=== PATIENT | male | born 1945 | race Caucasian/White ===

== ENCOUNTER 2022-10-09 21:54 | Emergency (ER) | payer BC, MEDICARE ==
[2022-10-09] MEDS ORDERED: LIDOCAINE 2% 5ML JELLY UROJET TOP ONE (22:20)
[2022-10-09] MEDS ORDERED: TAMSULOSIN 0.4 MG CAP PO ONE (22:20)
[2022-10-09 22:58] VITALS: BP 158/88
[2022-10-09] MEDS ORDERED: FLOM0.4C39 PO (23:43)
[2022-10-09] MEDS ORDERED: CEPH500C PO (23:43)
[2022-10-09] MEDS ORDERED: CEPHALEXIN 500 MG CAP PO ONE (23:45)
== END 2022-10-09 23:57 | disposition home or self-care (01) ==
LOC: EDBD 21:54 → M ED 21:54
DX: N39.0 Urinary tract infection, site not specified (principal); R33.9 Retention of urine, unspecified; F41.9 Anxiety disorder, unspecified; Z91.048 Other nonmedicinal substance allergy status; Z79.2 Long term (current) use of antibiotics; Z79.899 Other long term (current) drug therapy

== ENCOUNTER 2022-10-22 17:27 | Emergency (ER) | payer MEDICARE, BC ==
[~2022-10-22] VITALS: Ht 170.2 cm; Wt 75.0 kg
[~2022-10-22 17:27] MED LIST: CEPH500C PO; FLOM0.4C39 PO
[2022-10-22] MEDS ORDERED: LIDOCAINE 2% 5ML JELLY UROJET As Ordered ONE (17:48)
[2022-10-22 18:23] LABS: BASO % 0.5 % (0.0-1.0); EOS # 0.1 10^3/uL (0.0-0.5); HEMATOCRIT 45.2 % (42.0-52.0); HEMOGLOBIN 15.3 g/dl (13.5-17.5); LYMPH # 0.3 10^3/uL (1.5-5.0); LYMPH % 4.7 % (24.0-44.0); MEAN CORPUSCULAR HEMOGLOBIN 32.6 pg (27.0-33.0); MEAN CORPUSCULAR HGB CONC 33.8 g/dl (32.0-36.5); MEAN CORPUSCULAR VOLUME 96.4 fl (80.0-96.0); MONO # 0.1 10^3/uL (0.0-0.8); MONO % 1.6 % (2.0-8.0); NEUTROPHILS # 5.3 10^3/uL (1.5-8.5); NEUTROPHILS % 91.9 % (36.0-66.0); PLATELET COUNT, AUTOMATED 127 10^3/uL (150-450); RED BLOOD COUNT 4.69 10^6/uL (4.30-6.10); WHITE BLOOD COUNT 5.8 10^3/uL (4.0-10.0)
[2022-10-22] MEDS ORDERED: LIDOCAINE 2% 5ML JELLY UROJET TOP ONE (18:40)
[2022-10-22 18:45] LABS: ALBUMIN 4.4 G/DL (3.2-5.2); BILIRUBIN,DIRECT 0.3 MG/DL (<0.4); BILIRUBIN,TOTAL 0.9 MG/DL (0.3-1.2); CALCIUM LEVEL 9.2 MG/DL (8.3-10.6); CREATININE FOR GFR 1.29 MG/DL (0.70-1.30); GLOMERULAR FILTRATION RATE 57.5 (>42); POTASSIUM SERUM 4.2 MMOL/L (3.5-5.1); TOTAL PROTEIN 7.4 G/DL (5.7-8.2)
[2022-10-22] MEDS ORDERED: BACT800T5 PO (20:57)
[2022-10-22] MEDS ORDERED: FLOM0.4C39 PO (21:06)
[2022-10-22 21:51] VITALS: BP 163/69
== END 2022-10-22 22:13 | disposition home or self-care (01) ==
LOC: M ED 17:27 → EDBD 17:27 → M ED 22:13
DX: R33.9 Retention of urine, unspecified (principal); N30.90 Cystitis, unspecified without hematuria
CPT/HCPCS: 80048; 80076; 81000; 81015; 85025; 87040; 87088; 87186; 99284; G0463

== ENCOUNTER → 2022-11-02 | Outpatient (REF) | payer BC, MEDICARE ==
[~2022-11-02] MED LIST changes: +BACT800T5 PO
== END ==
LOC: M SFHCADAM 07:19
PROVIDERS: ATTEND Family Medicine
DX: N18.31 Chronic kidney disease, stage 3a (principal); I47.20 Ventricular tachycardia, unspecified; E53.8 Deficiency of other specified B group vitamins; E03.9 Hypothyroidism, unspecified; E55.9 Vitamin D deficiency, unspecified; Z13.1 Encounter for screening for diabetes mellitus; N39.0 Urinary tract infection, site not specified; B96.5 Pseudomonas (aeruginosa) (mallei) (pseudomallei) as the cause of diseases classified elsewhere

== ENCOUNTER 2022-12-23 11:48 | Inpatient (IN) | payer MEDICARE ==
[~2022-12-23] VITALS: Ht 180.3 cm; Wt 71.3 kg
[2022-12-23] MEDS ORDERED: PIPERACILLIN/TAZOBACTAM SOD 2.25 GM in D5W MINI-BAG PLUS 50 ML IV ONE (13:40)
[2022-12-23] MEDS ORDERED: NS 1,000 ML IV ONE (13:40)
[2022-12-23 14:47] LABS: BASO % 0.4 % (0.0-1.0); EOS # 0.1 10^3/uL (0.0-0.5); EOS % 0.8 % (0.0-3.0); HEMATOCRIT 47.4 % (42.0-52.0); HEMOGLOBIN 15.9 g/dl (13.5-17.5); LYMPH # 0.8 10^3/uL (1.5-5.0); LYMPH % 10.8 % (24.0-44.0); MEAN CORPUSCULAR HEMOGLOBIN 32.3 pg (27.0-33.0); MEAN CORPUSCULAR HGB CONC 33.5 g/dl (32.0-36.5); MEAN CORPUSCULAR VOLUME 96.3 fl (80.0-96.0); MONO # 0.1 10^3/uL (0.0-0.8); MONO % 1.8 % (2.0-8.0); NEUTROPHILS # 6.2 10^3/uL (1.5-8.5); NEUTROPHILS % 85.8 % (36.0-66.0); PLATELET COUNT, AUTOMATED 133 10^3/uL (150-450); RED BLOOD COUNT 4.92 10^6/uL (4.30-6.10); WHITE BLOOD COUNT 7.2 10^3/uL (4.0-10.0)
[2022-12-23 15:18] LABS: ALBUMIN 4.2 G/DL (3.2-5.2); ALKALINE PHOSPHATASE 85 U/L (46-116); ALT/SGPT 18 U/L (7.0-40); AST/SGOT 15 U/L (<34); BILIRUBIN,DIRECT 0.2 MG/DL (<0.4); BILIRUBIN,TOTAL 0.6 MG/DL (0.3-1.2); BLOOD UREA NITROGEN 26 MG/DL (9-23); CALCIUM LEVEL 9.1 MG/DL (8.3-10.6); CARBON DIOXIDE LEVEL 27 MMOL/L (20-31); CHLORIDE LEVEL 109 MMOL/L (98-107); GLOMERULAR FILTRATION RATE > 60.0 (>42); GLUCOSE, FASTING 91 MG/DL (74-106); POTASSIUM SERUM 4.2 MMOL/L (3.5-5.1); SODIUM LEVEL 143 MMOL/L (136-145); TOTAL PROTEIN 7.3 G/DL (5.7-8.2)
[2022-12-23] MEDS: TAMSULOSIN 0.4 MG CAP PO SCH (16:18)
[2022-12-23] MEDS ORDERED: TAB-TAB3 PO (16:25)
[2022-12-23] MEDS ORDERED: CIPR500T39 PO (16:25)
[2022-12-23] MEDS ORDERED: TAMS1CAP17 PO (16:25)
[2022-12-23] MEDS ORDERED: HOME MED LIST COMPLETE! XX SCH (16:30)
[2022-12-23] MEDS: ACETAMINOPHEN TAB 650MG DOSE (2X325MG) PO PRN (17:08)
[2022-12-23 19:23] VITALS: BP 165/82
[2022-12-23] MEDS: CEFEPIME HCL 1 GM in D5W MINI-BAG PLUS 50 ML IV SCH (20:29)
[2022-12-23] MEDS ORDERED: NORCO, ANEXSIA 5/325MG TABLET (HYDROcodone/ACETAMINOPHEN) PO PRN (20:50)
[2022-12-23] MEDS ORDERED: KETOROLAC 30 MG/ML 1ML VIAL IV ONE (20:50)
[2022-12-23 22:00] VITALS: BP 150/71
[2022-12-24 06:00] VITALS: BP 148/81
[2022-12-24 06:30] LABS: HEMATOCRIT 42.5 % (42.0-52.0); HEMOGLOBIN 14.4 g/dl (13.5-17.5); MEAN CORPUSCULAR HEMOGLOBIN 32.2 pg (27.0-33.0); MEAN CORPUSCULAR HGB CONC 33.9 g/dl (32.0-36.5); MEAN CORPUSCULAR VOLUME 95.1 fl (80.0-96.0); PLATELET COUNT, AUTOMATED 150 10^3/uL (150-450); RED BLOOD COUNT 4.47 10^6/uL (4.30-6.10)
[2022-12-24 07:01] LABS: ALBUMIN 3.5 G/DL (3.2-5.2); ALKALINE PHOSPHATASE 70 U/L (46-116); ALT/SGPT 13 U/L (7.0-40); AST/SGOT 14 U/L (<34); BILIRUBIN,TOTAL 0.9 MG/DL (0.3-1.2); BLOOD UREA NITROGEN 21 MG/DL (9-23); CALCIUM LEVEL 8.5 MG/DL (8.3-10.6); CARBON DIOXIDE LEVEL 29 MMOL/L (20-31); CHLORIDE LEVEL 107 MMOL/L (98-107); CREATININE FOR GFR 0.92 MG/DL (0.70-1.30); GLOMERULAR FILTRATION RATE > 60.0 (>42); GLUCOSE, FASTING 82 MG/DL (74-106); MAGNESIUM LEVEL 1.8 MG/DL (1.8-2.4); SODIUM LEVEL 142 MMOL/L (136-145); TOTAL PROTEIN 6.1 G/DL (5.7-8.2)
[2022-12-24] MEDS: CEFEPIME HCL 1 GM in D5W MINI-BAG PLUS 50 ML IV SCH ×2 (09:01→20:14)
[2022-12-24] MEDS: ENOXAPARIN 40MG/0.4ML SYRINGE (J1650 PER 10MG) SC SCH (09:02)
[2022-12-24] MEDS: ACETAMINOPHEN TAB 650MG DOSE (2X325MG) PO PRN ×2 (09:02→15:43)
[2022-12-24] MEDS: TAMSULOSIN 0.4 MG CAP PO SCH (09:02)
[2022-12-24 14:00] VITALS: BP 149/84
[2022-12-24] MEDS ORDERED: KETOROLAC 30 MG/ML 1ML VIAL IV PRN (16:05)
[2022-12-24] MEDS ORDERED: oxyCODONE 5MG TAB PO PRN (16:05)
[2022-12-24] MEDS ORDERED: ACETAMINOPHEN 500 MG TAB PO PRN (16:05)
[2022-12-24] MEDS: PHENAZOPYRIDINE 100 MG TAB PO SCH ×2 (18:21→20:14)
[2022-12-24] MEDS ORDERED: SENNA 8.6 MG TAB (SENOKOT) PO ONE (20:00)
[2022-12-24] MEDS ORDERED: BISACODYL 10MG SUPP PR PRN (20:00)
[2022-12-24] MEDS: DOCUSATE SODIUM 100MG CAPSULE PO SCH (20:14)
[2022-12-24 21:34] VITALS: BP 150/82
[2022-12-24] MEDS: KETOROLAC 30 MG/ML 1ML VIAL IV PRN (23:09)
[2022-12-25 06:00] VITALS: BP 167/92
[2022-12-25 07:59] LABS: BASO % 0.5 % (0.0-1.0); EOS # 0.1 10^3/uL (0.0-0.5); EOS % 1.7 % (0.0-3.0); HEMATOCRIT 42.5 % (42.0-52.0); HEMOGLOBIN 14.5 g/dl (13.5-17.5); LYMPH # 0.8 10^3/uL (1.5-5.0); LYMPH % 11.8 % (24.0-44.0); MEAN CORPUSCULAR HEMOGLOBIN 32.6 pg (27.0-33.0); MEAN CORPUSCULAR HGB CONC 34.1 g/dl (32.0-36.5); MEAN CORPUSCULAR VOLUME 95.5 fl (80.0-96.0); MONO # 0.1 10^3/uL (0.0-0.8); MONO % 1.7 % (2.0-8.0); NEUTROPHILS # 5.4 10^3/uL (1.5-8.5); PLATELET COUNT, AUTOMATED 139 10^3/uL (150-450); RED BLOOD COUNT 4.45 10^6/uL (4.30-6.10); WHITE BLOOD COUNT 6.5 10^3/uL (4.0-10.0)
[2022-12-25 08:17] LABS: BLOOD UREA NITROGEN 27 MG/DL (9-23); CALCIUM LEVEL 8.7 MG/DL (8.3-10.6); CARBON DIOXIDE LEVEL 28 MMOL/L (20-31); CHLORIDE LEVEL 109 MMOL/L (98-107); CREATININE FOR GFR 1.05 MG/DL (0.70-1.30); GLOMERULAR FILTRATION RATE > 60.0 (>42); GLUCOSE, FASTING 91 MG/DL (74-106); POTASSIUM SERUM 4.3 MMOL/L (3.5-5.1); SODIUM LEVEL 142 MMOL/L (136-145)
[2022-12-25] MEDS: METAMUCIL (PSYLLIUM) PACKET PO SCH ×2 (09:00→20:53)
[2022-12-25] MEDS: MIRALAX *UNIT DOSE* 17GM PACKET PO SCH ×2 (09:00→20:53)
[2022-12-25] MEDS: DOCUSATE SODIUM 100MG CAPSULE PO SCH ×2 (09:01→20:53)
[2022-12-25] MEDS: ENOXAPARIN 40MG/0.4ML SYRINGE (J1650 PER 10MG) SC SCH (09:01)
[2022-12-25] MEDS: CEFEPIME HCL 1 GM in D5W MINI-BAG PLUS 50 ML IV SCH ×2 (09:01→20:54)
[2022-12-25] MEDS: TAMSULOSIN 0.4 MG CAP PO SCH (09:02)
[2022-12-25] MEDS: PHENAZOPYRIDINE 100 MG TAB PO SCH ×3 (09:02→20:54)
[2022-12-25] MEDS: KETOROLAC 30 MG/ML 1ML VIAL IV PRN ×2 (12:57→20:59)
[2022-12-25 14:15] VITALS: BP 148/76
[2022-12-25 21:46] VITALS: BP 151/75
[2022-12-26 06:00] VITALS: BP 147/72
[2022-12-26 07:52] LABS: HEMATOCRIT 42.2 % (42.0-52.0); HEMOGLOBIN 13.9 g/dl (13.5-17.5); MEAN CORPUSCULAR HGB CONC 32.9 g/dl (32.0-36.5); PLATELET COUNT, AUTOMATED 130 10^3/uL (150-450); RED BLOOD COUNT 4.35 10^6/uL (4.30-6.10); WHITE BLOOD COUNT 6.8 10^3/uL (4.0-10.0)
[2022-12-26] MEDS ORDERED: CEFEPIME HCL 1 GM in D5W MINI-BAG PLUS 50 ML IV ONE ×2 (08:00→15:00)
[2022-12-26 08:08] LABS: BLOOD UREA NITROGEN 35 MG/DL (9-23); CALCIUM LEVEL 8.6 MG/DL (8.3-10.6); CARBON DIOXIDE LEVEL 30 MMOL/L (20-31); CHLORIDE LEVEL 110 MMOL/L (98-107); GLOMERULAR FILTRATION RATE > 60.0 (>42); GLUCOSE, FASTING 93 MG/DL (74-106); POTASSIUM SERUM 4.5 MMOL/L (3.5-5.1); SODIUM LEVEL 144 MMOL/L (136-145)
[2022-12-26] MEDS: MIRALAX *UNIT DOSE* 17GM PACKET PO SCH (09:00)
[2022-12-26] MEDS: DOCUSATE SODIUM 100MG CAPSULE PO SCH (09:00)
[2022-12-26] MEDS: METAMUCIL (PSYLLIUM) PACKET PO SCH (09:00)
[2022-12-26] MEDS: KETOROLAC 30 MG/ML 1ML VIAL IV PRN (09:09)
[2022-12-26] MEDS: ENOXAPARIN 40MG/0.4ML SYRINGE (J1650 PER 10MG) SC SCH (09:11)
[2022-12-26] MEDS: PHENAZOPYRIDINE 100 MG TAB PO SCH (09:12)
[2022-12-26] MEDS: TAMSULOSIN 0.4 MG CAP PO SCH (09:12)
[2022-12-26] MEDS ORDERED: MIRA1POW3 PO (10:04)
[2022-12-26] MEDS ORDERED: ACET1TAB55 PO (10:04)
[2022-12-26] MEDS ORDERED: COLA100C5 PO (10:04)
[2022-12-26] MEDS ORDERED: IBUP-1022 PO (10:06)
== END 2022-12-26 15:00 | disposition home or self-care (01) | DRG 700 ==
LOC: M ED 11:48 → M ED INP 16:02 → M MS5PR 19:15
PROVIDERS: ADMIT Family Medicine; ATTEND Student in an Organized Health Care Education/Training Program
DX: T83.511A Infection and inflammatory reaction due to indwelling urethral catheter, initial encounter (principal); N39.0 Urinary tract infection, site not specified; N40.1 Benign prostatic hyperplasia with lower urinary tract symptoms; K59.00 Constipation, unspecified; Z20.822 Contact with and (suspected) exposure to COVID-19; Z79.899 Other long term (current) drug therapy

== ENCOUNTER → 2023-03-10 | Outpatient (REF) | payer BC ==
[~2023-03-10] MED LIST changes: +ACET1TAB55 PO; +CIPR500T39 PO; +COLA100C5 PO; +IBUP-1022 PO; +MIRA1POW3 PO; +TAB-TAB3 PO; +TAMS1CAP17 PO
[2023-03-10 14:15] LABS: HEMATOCRIT 46.5 % (42.0-52.0); HEMOGLOBIN 15.5 g/dl (13.5-17.5); MEAN CORPUSCULAR HEMOGLOBIN 32.4 pg (27.0-33.0); MEAN CORPUSCULAR HGB CONC 33.3 g/dl (32.0-36.5); MEAN CORPUSCULAR VOLUME 97.3 fl (80.0-96.0); PLATELET COUNT, AUTOMATED 117 10^3/uL (150-450); RED BLOOD COUNT 4.78 10^6/uL (4.30-6.10); WHITE BLOOD COUNT 8.5 10^3/uL (4.0-10.0)
[2023-03-10 14:40] LABS: ALBUMIN 4.1 G/DL (3.2-5.2); ALKALINE PHOSPHATASE 83 U/L (46-116); ALT/SGPT 13 U/L (7.0-40); AST/SGOT 13 U/L (<34); BLOOD UREA NITROGEN 18 MG/DL (9-23); CALCIUM LEVEL 8.9 MG/DL (8.3-10.6); CARBON DIOXIDE LEVEL 28 MMOL/L (20-31); CHLORIDE LEVEL 107 MMOL/L (98-107); CHOLESTEROL LEVEL 196 MG/DL (<200); CHOLESTEROL RISK RATIO 5.31 (<5); CREATININE FOR GFR 1.02 MG/DL (0.70-1.30); GLOMERULAR FILTRATION RATE > 60.0 (>42); GLUCOSE, FASTING 98 MG/DL (74-106); HDL CHOLESTEROL 36.9 MG/DL (>40); LDL CHOLESTEROL 129.3 MG/DL (<100); NON-HDL-C 159.1 MG/DL; POTASSIUM SERUM 3.9 MMOL/L (3.5-5.1); SODIUM LEVEL 141 MMOL/L (136-145); TOTAL PROTEIN 6.6 G/DL (5.7-8.2); TRIGLYCERIDES LEVEL 149 MG/DL (<150)
[2023-03-10 14:42] LABS: FREE T4 0.84 NG/DL (0.89-1.76); THYROID STIMULATING HORMONE 1.179 uIU/ML (0.55-4.78); VITAMIN B12 LEVEL 338 PG/ML (211-911)
[2023-03-10 14:44] LABS: FOLATE 14.45 NG/ML (>5.4)
[2023-03-10 15:09] LABS: HEMOGLOBIN A1c 4.6 % (4.0-6.0)
== END ==
LOC: M SFHCADAM 10:31
PROVIDERS: ATTEND Family Medicine
DX: N18.31 Chronic kidney disease, stage 3a (principal); Z13.1 Encounter for screening for diabetes mellitus; E03.9 Hypothyroidism, unspecified; E53.8 Deficiency of other specified B group vitamins; B96.5 Pseudomonas (aeruginosa) (mallei) (pseudomallei) as the cause of diseases classified elsewhere

== ENCOUNTER 2023-03-15 08:30 | Emergency (ER) | payer BC, MEDICARE ==
[~2023-03-15] VITALS: Ht 180.3 cm; Wt 72.7 kg
[2023-03-15] MEDS ORDERED: LIDOCAINE 2% 5ML JELLY UROJET TOP PRN (08:45)
[2023-03-15] MEDS ORDERED: CEFDINIR 300 MG CAP (OMNICEF) PO ONE (10:00)
[2023-03-15 10:22] VITALS: BP 155/83; TEMP 97.5; O2SAT 96
[2023-03-15] MEDS ORDERED: CEFD300C41 PO (10:22)
== END 2023-03-15 11:10 | disposition home or self-care (01) ==
LOC: EDBD 08:30 → M ED 08:30
DX: R33.9 Retention of urine, unspecified (principal); N39.0 Urinary tract infection, site not specified; N40.1 Benign prostatic hyperplasia with lower urinary tract symptoms; Z91.048 Other nonmedicinal substance allergy status; Z79.2 Long term (current) use of antibiotics; Z79.810 Long term (current) use of selective estrogen receptor modulators (SERMs); Z79.899 Other long term (current) drug therapy

== ENCOUNTER → 2024-07-24 | Outpatient (REF) | payer BC, MEDICARE ==
[~2024-07-24] MED LIST changes: +CEFD1CAP9 PO; -MIRA1POW3 PO; +MIRA33506 PO
[2024-07-24 12:53] LABS: HEMATOCRIT 43.6 % (42.0-52.0); HEMOGLOBIN 15.3 g/dl (13.5-17.5); MEAN CORPUSCULAR HEMOGLOBIN 33.6 pg (27.0-33.0); MEAN CORPUSCULAR HGB CONC 35.1 g/dl (32.0-36.5); MEAN CORPUSCULAR VOLUME 95.8 fl (80.0-96.0); PLATELET COUNT, AUTOMATED 156 10^3/uL (150-450); RED BLOOD COUNT 4.55 10^6/uL (4.30-6.10); WHITE BLOOD COUNT 5.7 10^3/uL (4.0-10.0)
[2024-07-24 12:59] LABS: ALKALINE PHOSPHATASE 91 U/L (40-129); ALT/SGPT 18 U/L (7.0-40); AST/SGOT 12 U/L (<34); BILIRUBIN,TOTAL 0.8 MG/DL (0.3-1.2); BLOOD UREA NITROGEN 18 MG/DL (9-23); CALCIUM LEVEL 9.7 MG/DL (8.3-10.6); CARBON DIOXIDE LEVEL 32 MMOL/L (20-31); CHLORIDE LEVEL 106 MMOL/L (98-107); CHOLESTEROL LEVEL 123 MG/DL (<200); CHOLESTEROL RISK RATIO 3.43 (<5); CREATININE FOR GFR 1.11 MG/DL (0.70-1.30); FREE T4 1.04 NG/DL (0.89-1.76); GLOMERULAR FILTRATION RATE > 60.0 (>42); GLUCOSE, FASTING 88 MG/DL (74-106); HDL CHOLESTEROL 35.8 MG/DL (>40); NON-HDL-C 87.2 MG/DL; POTASSIUM SERUM 5.1 MMOL/L (3.5-5.1); SODIUM LEVEL 142 MMOL/L (136-145); THYROID STIMULATING HORMONE 3.509 uIU/ML (0.55-4.78); TOTAL PROTEIN 6.9 G/DL (5.7-8.2); TRIGLYCERIDES LEVEL 71 MG/DL (<150)
[2024-07-24 13:00] LABS: VITAMIN B12 LEVEL 485 PG/ML (211-911)
== END ==
LOC: M SFHCADAM 10:02
PROVIDERS: ATTEND Family Medicine
DX: I11.9 Hypertensive heart disease without heart failure (principal); E53.8 Deficiency of other specified B group vitamins; E03.9 Hypothyroidism, unspecified

== ENCOUNTER → 2025-04-23 | Outpatient (REF) | payer MEDICARE ==
[~2025-04-23] MED LIST changes: -FLOM0.4C39 PO; +TAMS-18 PO
== END ==
LOC: M SFHCADAM 15:32
PROVIDERS: ATTEND Family Medicine
DX: Z53.9 Procedure and treatment not carried out, unspecified reason (principal)

== ENCOUNTER → 2025-08-08 | Outpatient (CLI) | payer MEDICARE ==
[~2025-08-08] MED LIST changes: -IBUP-1022 PO; +IBUP600T42 PO
== END ==
LOC: M ADAMS 15:27
PROVIDERS: ATTEND Physician Assistant
DX: M16.12 Unilateral primary osteoarthritis, left hip (principal); M89.8X6 Other specified disorders of bone, lower leg; M79.652 Pain in left thigh

== ENCOUNTER → 2025-08-08 | Outpatient (REF) | payer MEDICARE ==
[2025-08-08 17:33] LABS: PLATELET COUNT, AUTOMATED 179 10^3/uL (150-450)
[2025-08-08 18:09] LABS: VITAMIN B12 LEVEL 311 PG/ML (211-911)
[2025-08-08 18:10] LABS: FREE T4 1.05 NG/DL (0.89-1.76)
[2025-08-08 18:12] LABS: ALT/SGPT 18 U/L (7.0-40); AST/SGOT 19 U/L (<34); CALCIUM LEVEL 9.0 MG/DL (8.3-10.6); CARBON DIOXIDE LEVEL 31 MMOL/L (20-31); CHLORIDE LEVEL 102 MMOL/L (98-107); CHOLESTEROL LEVEL 213 MG/DL (<200); CHOLESTEROL RISK RATIO 7.34 (<5); CREATININE FOR GFR 1.13 MG/DL (0.70-1.30); GLOMERULAR FILTRATION RATE 66.1 (>42); NON-HDL-C 184.0 MG/DL; POTASSIUM SERUM 3.7 MMOL/L (3.5-5.1); SODIUM LEVEL 145 MMOL/L (136-145); TRIGLYCERIDES LEVEL 415 MG/DL (<150)
== END ==
LOC: M SFHCADAM 15:08
PROVIDERS: ATTEND Physician Assistant
DX: N18.31 Chronic kidney disease, stage 3a (principal); E78.5 Hyperlipidemia, unspecified; E53.8 Deficiency of other specified B group vitamins; E03.9 Hypothyroidism, unspecified